=== PATIENT | male | born 1965 | race African-American/Black ===

== ENCOUNTER 2017-01-02 14:40 | Emergency (ER) | payer OTHER ==
[2017-01-02] MEDS ORDERED: MORPHINE SULFATE 4 MG/ML SYRINGE IVP STA ×2 (15:25→19:00)
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
[2017-01-02] MEDS ORDERED: KETOROLAC 30 MG/ML 1 ML VIAL IVP STA (19:00)
[2017-01-02] MEDS ORDERED: DIAZEPAM 5 MG/ML 2 ML SYRINGE IVP STA (19:00)
[2017-01-02] MEDS ORDERED: DIAZEPAM 5 MG TAB PO STA (19:18)
[2017-01-02 19:31] VITALS: BP 180/107; PULSE 85; RESP 16; TEMP 98.7
== END 2017-01-02 19:33 | disposition home or self-care (01) ==
LOC: EC 14:40
DX: T07 Unspecified multiple injuries (principal); R42 Dizziness and giddiness; M54.2 Cervicalgia; M54.5 Low back pain; M54.6 Pain in thoracic spine; M25.522 Pain in left elbow; M25.551 Pain in right hip; M25.552 Pain in left hip; M79.631 Pain in right forearm; I44.0 Atrioventricular block, first degree; I10 Essential (primary) hypertension; Z88.8 Allergy status to other drugs, medicaments and biological substances; Z79.899 Other long term (current) drug therapy; V43.62XA Car passenger injured in collision with other type car in traffic accident, initial encounter; W22.10XA Striking against or struck by unspecified automobile airbag, initial encounter; Y92.410 Unspecified street and highway as the place of occurrence of the external cause
CPT/HCPCS: 99284; 96374; 96375; 96376; 93005; 72170; 73080; 73090; 72128; 72125; 72131; 70450; J2270; J1885

== ENCOUNTER 2017-01-07 23:28 | Emergency (ER) | payer OTHER ==
[2017-01-07 23:44] VITALS: RESP 18
[2017-01-07] MEDS ORDERED: ACETAMINOPHEN TAB 500 MG TAB PO STA (23:58)
[2017-01-07] MEDS ORDERED: ONDANSETRON ODT 4 MG TAB PO STA (23:58)
[2017-01-07] MEDS ORDERED: IBUPROFEN 600 MG TAB PO STA (23:58)
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
--- NOTE | 2017-01-08 00:36 | XR ---
EXAM: XR Left Knee, 3 views XR Right Knee, 3 views CLINICAL HISTORY: Reason: Pain TECHNIQUE: Three views of the bilateral knees. COMPARISON: No relevant prior studies available. FINDINGS: Bones/joints: No acute fracture. A 1.1 cm well-corticated ossicle is seen projecting over the tibial spine of the left knee but which is likely part of the enthesopathic changes along the patellar tendon. Enthesopathic changes noted in the upper and lower poles of the patella bilaterally. No dislocation. Soft tissues: Unremarkable. IMPRESSION: No acute findings.
[2017-01-08] MEDS ORDERED: ONDANSETRON 4 MG ODT STARTER PACK 2 TAB BTL PO STA (00:43)
[2017-01-08 00:52] VITALS: BP 178/92; PULSE 67; TEMP 98.6
== END 2017-01-08 00:55 | disposition home or self-care (01) ==
LOC: EC 23:28
DX: S06.0X9A Concussion with loss of consciousness of unspecified duration, initial encounter (principal); S80.02XA Contusion of left knee, initial encounter; M25.561 Pain in right knee; M51.26 Other intervertebral disc displacement, lumbar region; I10 Essential (primary) hypertension; Z88.8 Allergy status to other drugs, medicaments and biological substances; Z79.899 Other long term (current) drug therapy; V53.5XXA Driver of pick-up truck or van injured in collision with car, pick-up truck or van in traffic accident, initial encounter; Y92.410 Unspecified street and highway as the place of occurrence of the external cause
CPT/HCPCS: 99284; 73562; S0119

== ENCOUNTER → 2017-07-18 | Outpatient (CLI) | payer BC, OTHER ==
--- NOTE | 2017-07-18 11:12 | MR ---
EXAMINATION TYPE: MR knee RT wo con DATE OF EXAM: 07/18/2017 10:24 AM COMPARISON: NONE HISTORY: Right knee pain TECHNIQUE: Multiplanar, multisequence imaging of the right knee is performed. FINDINGS: MEDIAL MENISCUS: Anterior and posterior horns are intact without tear. LATERAL MENISCUS: Anterior and posterior horns are intact without tear. CRUCIATE LIGAMENTS: The anterior and posterior cruciate ligaments are intact and unremarkable. Cystic structure is noted adjacent to the PCL measuring 2.6 x 1.2 cm. COLLATERAL LIGAMENTS: The medial collateral ligament and lateral collateral ligament complex are intact and unremarkable. EXTENSOR MECHANISM: Visualized quadriceps and patellar tendons are intact. EFFUSION: No evidence for joint effusion. POPLITEAL CYST: No popliteal/zambrano cyst. TRICOMPARTMENT SPACES: Mild narrowing medial tibiofemoral joint space and moderate to severe narrowin g patellofemoral joint space with early changes of chondral malacia patella. Associated spur formatio n noted.. CARTILAGE: The articular cartilage is maintained without abnormal signal or full-thickness defect. BONE MARROW SIGNAL: No focal abnormal marrow signal is appreciated: OTHER: No additional significant abnormality is appreciated. IMPRESSION: 1. Changes of osteoarthritis. Chondromalacia patella. 2. Cystic structure of adjacent to the PCL as noted may reflect a synovial cyst.
== END | disposition home or self-care (01) ==
LOC: RADMRIMAIN 09:48
PROVIDERS: ATTEND Orthopaedic Surgery
DX: M17.11 Unilateral primary osteoarthritis, right knee (principal); M22.41 Chondromalacia patellae, right knee

== ENCOUNTER 2018-07-05 12:23 | Emergency (ER) | payer OTHER, BC ==
[2018-07-05 12:31] VITALS: TEMP 98.1
[2018-07-05] MEDS ORDERED: HYDROmorphone 0.5 MG/0.5 ML SYRINGE IVP STA (12:43)
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
[2018-07-05 13:10] LABS: Basophils % (A) 1 %; Eosinophils # (A) 0.2 k/uL (0-0.7); Eosinophils % (A) 4 %; HCT 37.6 % (39.0-53.0); HGB 12.4 gm/dL (13.0-17.5); Lymphocytes # (A) 2.4 k/uL (1.0-4.8); Lymphocytes % (A) 40 %; MCH 29.9 pg (25.0-35.0); MCV 90.5 fL (80.0-100.0); Mean Platelet Volume 6.8; Monocytes # (A) 0.4 k/uL (0-1.0); Monocytes % (A) 6 %; Neutrophils # (A) 2.8 k/uL (1.3-7.7); Neutrophils % (A) 47 %; Platelet Count 204 k/uL (150-450); RBC 4.16 m/uL (4.30-5.90); RDW 13.5 % (11.5-15.5); WBC 6.1 k/uL (3.8-10.6)
[2018-07-05 13:21] LABS: ALT 63 U/L (21-72); AST 34 U/L (17-59); Albumin 3.9 g/dL (3.5-5.0); Alcohol <10 mg/dL; Alkaline Phosphatase 49 U/L (38-126); Anion Gap 7 mmol/L; Blood Urea Nitrogen 21 mg/dL (9-20); Calcium 8.8 mg/dL (8.4-10.2); Carbon Dioxide 26 mmol/L (22-30); Chloride 105 mmol/L (98-107); Glucose 101 mg/dL (74-99); Potassium 4.3 mmol/L (3.5-5.1); Sodium 138 mmol/L (137-145); Total Bilirubin 0.6 mg/dL (0.2-1.3)
[2018-07-05 13:30] LABS: INR 0.9 (<1.2); Partial Thromboplastin Time 24.9 sec (22.0-30.0); Prothrombin Time 9.9 sec (9.0-12.0)
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
[2018-07-05 14:50] LABS: Appearance,Urine Clear (Clear); Bilirubin,Urine Negative (Negative); Blood,Urine Negative (Negative); Color,Urine Light Yellow; Glucose,Urine (UA) Negative (Negative); Ketones,Urine Negative (Negative); Leukocyte Esterase,Urine Negative (Negative); Nitrite,Urine Negative (Negative); Protein,Urine Negative (Negative); Specific Gravity,Urine 1.023 (1.001-1.035); Urobilinogen,Urine <2.0 mg/dL (<2.0)
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
[2018-07-05 15:07] LABS: Amphetamine Screen,Urine Not Detected (NotDetected); Barbiturate Screen,Urine Not Detected (NotDetected); Benzodiazepines Screen,Urine Not Detected (NotDetected); Cocaine Screen,Urine Not Detected (NotDetected); Methadone Screen, Urine Not Detected (NotDetected); Opiate Screen,Urine Detected (NotDetected); Oxycodone Screen, Urine Not Detected (NotDetected); Phencyclidine Screen,Urine Not Detected (NotDetected); Tricyclic Antidepressant,Urine Not Detected (NotDetected); Urn Cannabinoid Scrn Detected (NotDetected)
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
[2018-07-05 15:19] VITALS: BP 157/96; PULSE 70; RESP 16
== END 2018-07-05 16:09 | disposition home or self-care (01) ==
LOC: EC 12:23
DX: S09.90XA Unspecified injury of head, initial encounter (principal); S80.02XA Contusion of left knee, initial encounter; M25.561 Pain in right knee; M54.2 Cervicalgia; M54.5 Low back pain; R79.89 Other specified abnormal findings of blood chemistry; I10 Essential (primary) hypertension; Z87.820 Personal history of traumatic brain injury; Z79.899 Other long term (current) drug therapy; Z88.8 Allergy status to other drugs, medicaments and biological substances; V89.2XXA Person injured in unspecified motor-vehicle accident, traffic, initial encounter; Y92.89 Other specified places as the place of occurrence of the external cause
CPT/HCPCS: 36415; 86900; 86901; 80053; 84484; 85025; 85610; 85730; 86850; 81003; 80306; 80320; 73562; 72170; 71045; 72125; 70450; 71260; 74177; 99285; 96374; L0120; J1170; Q9967

== ENCOUNTER 2018-07-10 11:54 | Emergency (ER) | payer OTHER, BC ==
[2018-07-10 12:21] VITALS: BP 140/89; PULSE 70; RESP 18; TEMP 98.4
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
== END 2018-07-10 14:08 | disposition home or self-care (01) ==
LOC: EC 11:54
DX: M54.9 Dorsalgia, unspecified (principal); I10 Essential (primary) hypertension; Z79.899 Other long term (current) drug therapy; Z88.8 Allergy status to other drugs, medicaments and biological substances; V89.2XXD Person injured in unspecified motor-vehicle accident, traffic, subsequent encounter
CPT/HCPCS: 99283

== ENCOUNTER → 2018-11-20 | Outpatient (CLI) | payer OTHER, BC ==
--- NOTE | 2018-11-20 16:51 | MR ---
EXAMINATION TYPE: MR knee RT wo con DATE OF EXAM: 11/20/2018 COMPARISON: Prior MRI right knee July 18, 2017. HISTORY: Right knee pain per order. Pain with locking and swelling per patient. TECHNIQUE: Multiplanar, multisequence images of the knee is performed without IV contrast. FINDINGS: MEDIAL MENISCUS: Anterior and posterior horns are intact without tear. LATERAL MENISCUS: Posterior horn is intact without tear. There is persistent curvilinear signal anter ior horn lateral meniscus extending to superior articular surface sagittal image 25. CRUCIATE LIGAMENTS: The anterior and posterior cruciate ligaments are intact and unremarkable. COLLATERAL LIGAMENTS: The medial collateral ligament and lateral collateral ligament complex are inta ct and unremarkable. EXTENSOR MECHANISM: Visualized quadriceps and patellar tendons are intact. EFFUSION: There is stable small suprapatellar joint effusion. POPLITEAL CYST: No popliteal/zambrano cyst. TRICOMPARTMENT SPACES: There is tricompartment degenerative change with spurring and narrowing. Most prominent findings or patellofemoral compartment similar to prior. CARTILAGE: There is significant chondromalacia patella with full-thickness cartilaginous loss laying along the inferior portion of the posterior patellar articulation. BONE MARROW SIGNAL: No focal abnormal marrow signal is appreciated. OTHER: No additional significant abnormality is appreciated. IMPRESSION: 1. There is full thickness tear anterior horn of lateral meniscus now identified. 2. Tricompartment degenerative changes with moderate to advanced patellofemoral joint arthropathy and significant chondromalacia patella redemonstrated.
== END | disposition home or self-care (01) ==
LOC: RADMRIMAIN 10:47
PROVIDERS: ATTEND Orthopaedic Surgery
DX: S83.281A Other tear of lateral meniscus, current injury, right knee, initial encounter (principal); M17.11 Unilateral primary osteoarthritis, right knee; M22.41 Chondromalacia patellae, right knee

== ENCOUNTER → 2019-02-21 | Outpatient (CLI) | payer OTHER ==
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
== END | disposition home or self-care (01) ==
LOC: RADUSWWP 12:14
PROVIDERS: ATTEND Family Medicine
DX: M79.662 Pain in left lower leg (principal)
CPT/HCPCS: 93970

== ENCOUNTER → 2019-12-12 | Outpatient (CLI) | payer BC, OTHER ==
--- NOTE | 2019-12-12 13:36 | CT ---
EXAMINATION TYPE: CT sinus wo con DATE OF EXAM: 12/12/2019 COMPARISON: None HISTORY: chronic pansinusitis CT DLP: 699.6 mGycm. Automated Exposure Control for Dose Reduction was Utilized. TECHNIQUE: CT scan of the sinuses is performed without contrast, axial images are obtained, coronal r eformatted images are also reviewed. FINDINGS: The paranasal sinuses including the frontal, ethmoid, sphenoid, and maxillary sinuses are remarkable for near complete opacification of left maxillary sinus, mucoperiosteal thickening present in the right maxillary sinus, inflammatory changes present in the sphenoid and ethmoid air cells. Fr ontal sinus is spared. The mastoid air cells are well aerated. Difficult to exclude underlying polyp disease, lobular appearance present in the left maxillary sinus and possibly at the level of the midd le terminated on the left. There may be some expansion of the left maxillary sinus, ostiomeatal units are obscured. The globes are intact bilaterally. IMPRESSION: Extensive sinus disease, additional findings above.
== END | disposition home or self-care (01) ==
LOC: RADCTMAIN 09:58
PROVIDERS: ATTEND Otolaryngology
DX: J32.4 Chronic pansinusitis (principal)
CPT/HCPCS: 70486

== ENCOUNTER → 2020-04-15 | Outpatient (CLI) | payer BC ==
--- NOTE | 2020-04-15 13:58 | XR ---
EXAMINATION TYPE: XR hand complete LT DATE OF EXAM: 04/15/2020 COMPARISON: None HISTORY: Pain TECHNIQUE: Three-view left hand FINDINGS: No acute fractures or dislocations are evident soft tissues are normal. Joint spaces are pr eserved. IMPRESSION: 1. Normal three-view left hand
== END | disposition home or self-care (01) ==
LOC: RADXRMAIN 13:03
PROVIDERS: ATTEND Family Medicine
DX: R52 Pain, unspecified (principal)

== ENCOUNTER → 2020-07-09 | Outpatient (CLI) | payer BC ==
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
== END ==
LOC: SLEEP 10:21
PROVIDERS: ATTEND Internal Medicine
DX: G47.33 Obstructive sleep apnea (adult) (pediatric) (principal); I10 Essential (primary) hypertension; J33.9 Nasal polyp, unspecified; M19.90 Unspecified osteoarthritis, unspecified site; E66.9 Obesity, unspecified; Z68.37 Body mass index [BMI] 37.0-37.9, adult; Z79.899 Other long term (current) drug therapy; Z79.51 Long term (current) use of inhaled steroids; Z87.828 Personal history of other (healed) physical injury and trauma; Z98.890 Other specified postprocedural states
CPT/HCPCS: 99211

== ENCOUNTER → 2023-04-14 | Day surgery (SDC) | payer BC ==
[~2023-04-14] MED LIST: HYDROmorphone 0.5 MG/0.5 ML SYRINGE IVP PRN; LACTATED RINGERS 1,000 ML IV SCH; LIDOCAINE 1% (10MG/ML) FOR IV START INTRADERMA PRN; LIDOCAINE 1% INJ 10MG/ML (20 ML MDV) ONE; PROPOFOL 10 MG/ML 20 ML VIAL IV ONE
[2023-04-14 08:46] VITALS: RESP 16; TEMP 97
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
--- NOTE | 2023-04-14 09:33 | P.OP ---
Date of Procedure: 04/14/23 Preoperative Diagnosis: Screening colonoscopy Postoperative Diagnosis: Mild diverticulosis Procedure(s) Performed: Colonoscopy Anesthesia: MAC Surgeon: Satish Salazar Pathology: none sent Condition: stable Disposition: PACU Description of Procedure: The patient's placed on the endoscopy table in the lateral position. He received IV sedation. Digital rectal exam was performed. Is revealed no abnormalities. The flexible colonoscope was then placed patient anus and passed throughout the entire colon. The ileocecal valve was visualized. The cecum, ascending and transverse colon appeared normal. Descending and sigmoid colon had minimal diverticular changes. Scope was then brought back the rectum and this appeared normal. Scope withdrawn for patient.
[2023-04-14 10:03] VITALS: BP 135/88; PULSE 71
== END | disposition home or self-care (01) ==
LOC: ORWHC2ENDO 08:05
PROVIDERS: ATTEND Surgery
DX: Z12.11 Encounter for screening for malignant neoplasm of colon (principal); K57.30 Diverticulosis of large intestine without perforation or abscess without bleeding; I10 Essential (primary) hypertension; G40.909 Epilepsy, unspecified, not intractable, without status epilepticus; M19.90 Unspecified osteoarthritis, unspecified site; Z80.1 Family history of malignant neoplasm of trachea, bronchus and lung; Z98.890 Other specified postprocedural states; Z83.3 Family history of diabetes mellitus; Z82.49 Family history of ischemic heart disease and other diseases of the circulatory system; Z82.3 Family history of stroke; Z79.899 Other long term (current) drug therapy
CPT/HCPCS: 45378; J2001; J2704

== ENCOUNTER 2023-05-08 04:58 | Inpatient (IN) | payer BC ==
[2023-05-08] MEDS ORDERED: LORazepam 2 MG/ML INJ IV STA (05:24)
[2023-05-08] MEDS ORDERED: SODIUM CHLORIDE 0.9% 1,000 ML IV STA (05:24)
[2023-05-08] MEDS ORDERED: SODIUM CHLORIDE 0.9% 500 ML 500 ML IV STA (05:24)
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
[2023-05-08 05:57] LABS: Basophils % (A) 1 %; Eosinophils # (A) 0.1 k/uL (0-0.7); Eosinophils % (A) 1 %; HCT 42.3 % (39.0-53.0); HGB 13.5 gm/dL (13.0-17.5); Lymphocytes # (A) 1.1 k/uL (1.0-4.8); Lymphocytes % (A) 19 %; MCH 30.2 pg (25.0-35.0); MCHC 31.8 g/dL (31.0-37.0); MCV 94.9 fL (80.0-100.0); Mean Platelet Volume 8.6; Monocytes # (A) 0.1 k/uL (0-1.0); Monocytes % (A) 3 %; Neutrophils # (A) 4.2 k/uL (1.3-7.7); Neutrophils % (A) 75 %; Platelet Count 241 k/uL (150-450); RBC 4.45 m/uL (4.30-5.90); RDW 12.5 % (11.5-15.5); WBC 5.6 k/uL (3.8-10.6)
[2023-05-08 06:08] LABS: ALT 32 U/L (4-49); AST 26 U/L (17-59); African American GFR (CKD) 48 (>60 ml/min/1.73 sqM); Alkaline Phosphatase 97 U/L (38-126); Anion Gap 32 mmol/L; Blood Urea Nitrogen 33 mg/dL (9-20); Calcium 10.3 mg/dL (8.4-10.2); Carbon Dioxide 11 mmol/L (22-30); Chloride 87 mmol/L (98-107); Lipase 221 U/L (23-300); Magnesium 3.2 mg/dL (1.6-2.3); Non-African American GFR(CKD) 41 (>60 ml/min/1.73 sqM); Sodium 130 mmol/L (137-145); Total Bilirubin 0.7 mg/dL (0.2-1.3); Total Protein 7.9 g/dL (6.3-8.2)
[2023-05-08 06:25] LABS: Potassium 6.2 mmol/L (3.5-5.1)
[2023-05-08 06:26] LABS: Glucose 943 mg/dL (74-99)
[2023-05-08] MEDS ORDERED: INSULIN REGULAR BOLUS (FROM DRIP BAG) IV ONE (06:43)
[2023-05-08] MEDS ORDERED: SODIUM CHLORIDE 0.9% 1,000 ML IV ONE (06:43)
[2023-05-08 06:45] LABS: INR 0.9 (<1.2); Prothrombin Time 9.8 sec (10.0-12.5)
[2023-05-08 06:52] LABS: Partial Thromboplastin Time 18.7 sec (22.0-30.0)
[2023-05-08] MEDS: INSULIN REGULAR 100 UNIT in SODIUM CHLORIDE 0.9% 100 ML IV SCH ×2 (07:30→16:57)
[2023-05-08 07:50] LABS: Glucose,Whole Blood >600 mg/dL (70-110)
[2023-05-08 08:07] LABS: VBG PH 7.28 (7.31-7.41)
[2023-05-08 08:42] LABS: African American GFR (CKD) 54 (>60 ml/min/1.73 sqM); Anion Gap 30 mmol/L; Blood Urea Nitrogen 35 mg/dL (9-20); Carbon Dioxide 12 mmol/L (22-30); Chloride 92 mmol/L (98-107); Non-African American GFR(CKD) 46 (>60 ml/min/1.73 sqM); Sodium 134 mmol/L (137-145)
[2023-05-08] MEDS ORDERED: Magnesium Replacement Protocol 1 EACH MISC MISCELLANE PRN (08:59)
[2023-05-08] MEDS ORDERED: DEXTROSE 50% SYRINGE 50 ML IVP PRN ×2 (08:59)
[2023-05-08] MEDS ORDERED: Potassium Replacement Protocol 1 EACH MISC MISCELLANE PRN (08:59)
[2023-05-08 09:00] LABS: Potassium 6.7 mmol/L (3.5-5.1)
[2023-05-08] MEDS ORDERED: SODIUM ZIRCONIUM CYCLOSILICATE 10 GM PACKET PO ONE (09:00)
[2023-05-08 09:02] LABS: Glucose 767 mg/dL (74-99)
[2023-05-08 09:13] LABS: Glucose,Whole Blood 519 mg/dL (70-110)
[2023-05-08 10:49] LABS: Glucose,Whole Blood 530 mg/dL (70-110)
[2023-05-08] MEDS: SODIUM CHLORIDE 0.9% 1,000 ML IV SCH ×5 (11:27→20:46)
[2023-05-08 11:35] LABS: T4, Free (Free Thyroxine) 1.28 ng/dL (0.78-2.19)
[2023-05-08 11:42] LABS: Glucose,Whole Blood 463 mg/dL (70-110)
[2023-05-08] MEDS ORDERED: D5-0.45% NACL WITH KCL 20MEQ/L 1,000 ML IV SCH (12:00)
[2023-05-08 12:48] LABS: African American GFR (CKD) 56 (>60 ml/min/1.73 sqM); Anion Gap 25 mmol/L; Blood Urea Nitrogen 30 mg/dL (9-20); Carbon Dioxide 13 mmol/L (22-30); Chloride 101 mmol/L (98-107); Glucose 394 mg/dL (74-99); Non-African American GFR(CKD) 48 (>60 ml/min/1.73 sqM); Potassium 5.3 mmol/L (3.5-5.1); Sodium 139 mmol/L (137-145)
[2023-05-08 12:55] LABS: Glucose,Whole Blood 372 mg/dL (70-110)
[2023-05-08 13:53] LABS: Glucose,Whole Blood 243 mg/dL (70-110)
[2023-05-08] MEDS ORDERED: HYDROcodone/APAP 7.5-325MG 1 EACH TAB PO PRN (14:13)
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
[2023-05-08] MEDS ORDERED: KCL IV SCH ×2 (14:30)
[2023-05-08] MEDS ORDERED: NACL IV SCH ×2 (14:30)
[2023-05-08] MEDS ORDERED: DEXTROSE IV SCH ×2 (14:30)
[2023-05-08 15:02] LABS: Glucose,Whole Blood 178 mg/dL (70-110)
[2023-05-08] MEDS: D5-0.45% NACL WITH KCL 20MEQ/L 1,000 ML IV SCH ×2 (15:25→20:44)
[2023-05-08 16:10] LABS: Glucose,Whole Blood 150 mg/dL (70-110)
[2023-05-08 17:11] LABS: Glucose,Whole Blood 116 mg/dL (70-110)
[2023-05-08 17:46] LABS: African American GFR (CKD) 64 (>60 ml/min/1.73 sqM); Anion Gap 14 mmol/L; Blood Urea Nitrogen 29 mg/dL (9-20); Calcium 9.8 mg/dL (8.4-10.2); Carbon Dioxide 23 mmol/L (22-30); Chloride 103 mmol/L (98-107); Glucose 114 mg/dL (74-99); Non-African American GFR(CKD) 55 (>60 ml/min/1.73 sqM); Potassium 4.2 mmol/L (3.5-5.1); Sodium 140 mmol/L (137-145)
[2023-05-08 18:14] LABS: Glucose,Whole Blood 137 mg/dL (70-110)
[2023-05-08 19:22] LABS: Glucose,Whole Blood 167 mg/dL (70-110)
[2023-05-08 20:32] LABS: Glucose,Whole Blood 187 mg/dL (70-110)
[2023-05-08 21:47] LABS: Glucose,Whole Blood 180 mg/dL (70-110)
[2023-05-08 22:43] LABS: Glucose,Whole Blood 206 mg/dL (70-110)
[2023-05-08 23:29] LABS: African American GFR (CKD) 66 (>60 ml/min/1.73 sqM); Anion Gap 15 mmol/L; Blood Urea Nitrogen 26 mg/dL (9-20); Calcium 9.4 mg/dL (8.4-10.2); Carbon Dioxide 21 mmol/L (22-30); Chloride 102 mmol/L (98-107); Glucose 190 mg/dL (74-99); Non-African American GFR(CKD) 57 (>60 ml/min/1.73 sqM); Potassium 4.1 mmol/L (3.5-5.1); Sodium 138 mmol/L (137-145)
[2023-05-09 00:36] LABS: Glucose,Whole Blood 279 mg/dL (70-110)
[2023-05-09] MEDS: INSULIN REGULAR 100 UNIT in SODIUM CHLORIDE 0.9% 100 ML IV SCH (00:39)
[2023-05-09 01:30] LABS: Glucose,Whole Blood 299 mg/dL (70-110)
[2023-05-09] MEDS: SODIUM CHLORIDE 0.9% 1,000 ML IV SCH ×3 (02:23→12:51)
[2023-05-09 02:44] LABS: Glucose,Whole Blood 289 mg/dL (70-110)
[2023-05-09 03:38] LABS: Glucose,Whole Blood 281 mg/dL (70-110)
[2023-05-09] MEDS: D5-0.45% NACL WITH KCL 20MEQ/L 1,000 ML IV SCH ×2 (03:39→11:58)
[2023-05-09 04:39] LABS: Glucose,Whole Blood 217 mg/dL (70-110)
[2023-05-09 05:46] LABS: Glucose,Whole Blood 251 mg/dL (70-110)
[2023-05-09 07:42] LABS: Glucose,Whole Blood 184 mg/dL (70-110)
[2023-05-09 08:21] LABS: Basophils % (A) 1 %; Eosinophils % (A) 1 %; HCT 35.9 % (39.0-53.0); HGB 11.7 gm/dL (13.0-17.5); Lymphocytes # (A) 2.2 k/uL (1.0-4.8); Lymphocytes % (A) 46 %; MCHC 32.7 g/dL (31.0-37.0); MCV 94.7 fL (80.0-100.0); Mean Platelet Volume 8.6; Monocytes # (A) 0.2 k/uL (0-1.0); Monocytes % (A) 3 %; Neutrophils # (A) 2.3 k/uL (1.3-7.7); Neutrophils % (A) 48 %; Platelet Count 128 k/uL (150-450); RBC 3.79 m/uL (4.30-5.90); RDW 12.4 % (11.5-15.5); WBC 4.9 k/uL (3.8-10.6)
[2023-05-09 08:24] LABS: ALT 30 U/L (4-49); AST 42 U/L (17-59); African American GFR (CKD) 87 (>60 ml/min/1.73 sqM); Albumin 3.4 g/dL (3.5-5.0); Alkaline Phosphatase 63 U/L (38-126); Anion Gap 10 mmol/L; Blood Urea Nitrogen 22 mg/dL (9-20); Calcium 8.7 mg/dL (8.4-10.2); Carbon Dioxide 22 mmol/L (22-30); Chloride 107 mmol/L (98-107); Glucose 188 mg/dL (74-99); Non-African American GFR(CKD) 75 (>60 ml/min/1.73 sqM); Potassium 4.1 mmol/L (3.5-5.1); Sodium 139 mmol/L (137-145); Total Bilirubin 0.8 mg/dL (0.2-1.3); Total Protein 6.3 g/dL (6.3-8.2)
[2023-05-09 08:36] LABS: Creatine Kinase MB 2.3 ng/mL (0.0-3.4); Troponin I 0.03 ng/mL (0.000-0.034)
--- NOTE | 2023-05-09 08:39 | P.PN ---
Subjective Progress Note Date: 05/09/23 Principal diagnosis: Dizziness and weakness This is a 57-year-old male who presented to the emergency room yesterday with complaints of weakness and dizziness. Patient reported he had been losing a lot of weight and had no appetite. Patient also reporting increased urination and increased thirst. Patient also has been having some chest discomfort for the last few weeks. Initial labs showed a glucose of 943. Patient found to be in the DKA and started on insulin drip. He has no prior history of diabetes. Past medical history of hypertension. Patient on an insulin drip since yesterday and blood sugar has stabilized. Patient was seen and evaluated laying on ER stretc her this morning. He reports he is feeling better. Still having some chest discomfort. Objective - Vital Signs Vital signs: Vital Signs Temp 98.2 F 05/08/23 05:07 Pulse 74 05/09/23 07:41 Resp 16 05/09/23 07:41 BP 168/87 05/09/23 07:41 Pulse Ox 98 05/09/23 07:41 FiO2 Intake & Output 05/08/23 05/09/23 05/09/23 18:59 06:59 18:59 Intake Total 101.000 9.627 Balance 101.000 9.627 Intake: Intake, IV Titration 101.000 9.627 Amount Insulin Regular 100 unit 101.000 9.627 In Sodium Chloride 0.9% 100 ml @ 0.1 UNITS/KG/HR 10.537 mls/hr IV .[id number] [facility] Rx#:[id number] - Constitutional General appearance: Present: cooperative, no acute distress - EENT Eyes: Present: PERRLA - Neck Neck: Present: normal ROM. Absent: lymphadenopathy, rigidity - Respiratory Respiratory: bilateral: CTA - Cardiovascular Rhythm: regular Heart sounds: normal: S1, S2 - Gastrointestinal General gastrointestinal: Absent: tenderness - Integumentary Integumentary: Present: normal, normal turgor - Psychiatric Psychiatric: Present: A&O x's 3, appropriate affect, intact judgment & insight - Labs CBC & Chem 7: 05/09/23 07:53 05/09/23 07:53 Labs: Abnormal Lab Results - Last 24 Hours (Table) 05/08/23 05/08/23 05/08/23 Range/Units 07:35 07:35 09:11 RBC (4.30-5.90) m/uL Hgb (13.0-17.5) gm/dL Hct (39.0-53.0) % Plt Count (150-450) k/uL Sodium 134 L (137-145) mmol/L Potassium 6.7 H* (3.5-5.1) mmol/L Chloride 92 L (98-107) mmol/L Carbon Dioxide 12 L (22-30) mmol/L BUN 35 H (9-20) mg/dL Creatinine 1.62 H (0.66-1.25) mg/dL Glucose 767 H* (74-99) mg/dL POC Glucose (mg/dL) 519 H (70-110) mg/dL Hemoglobin A1c (<=6.0) % Phosphorus 7.0 H (2.5-4.5) mg/dL Albumin (3.5-5.0) g/dL 05/08/23 05/08/23 05/08/23 Range/Units 09:12 10:46 11:40 RBC (4.30-5.90) m/uL Hgb (13.0-17.5) gm/dL Hct (39.0-53.0) % Plt Count (150-450) k/uL Sodium (137-145) mmol/L Potassium (3.5-5.1) mmol/L Chloride (98-107) mmol/L Carbon Dioxide (22-30) mmol/L BUN (9-20) mg/dL Creatinine (0.66-1.25) mg/dL Glucose (74-99) mg/dL POC Glucose (mg/dL) 530 H 463 H (70-110) mg/dL Hemoglobin A1c 16.3 H (<=6.0) % Phosphorus (2.5-4.5) mg/dL Albumin (3.5-5.0) g/dL 05/08/23 05/08/23 05/08/23 Range/Units 12:04 12:54 13:52 RBC (4.30-5.90) m/uL Hgb (13.0-17.5) gm/dL Hct (39.0-53.0) % Plt Count (150-450) k/uL Sodium (137-145) mmol/L Potassium 5.3 H (3.5-5.1) mmol/L Chloride (98-107) mmol/L Carbon Dioxide 13 L (22-30) mmol/L BUN 30 H (9-20) mg/dL Creatinine 1.58 H (0.66-1.25) mg/dL Glucose 394 H (74-99) mg/dL POC Glucose (mg/dL) 372 H 243 H (70-110) mg/dL Hemoglobin A1c (<=6.0) % Phosphorus (2.5-4.5) mg/dL Albumin (3.5-5.0) g/dL 05/08/23 05/08/23 05/08/23 Range/Units 15:00 16:08 17:07 RBC (4.30-5.90) m/uL Hgb (13.0-17.5) gm/dL Hct (39.0-53.0) % Plt Count (150-450) k/uL Sodium (137-145) mmol/L Potassium (3.5-5.1) mmol/L Chloride (98-107) mmol/L Carbon Dioxide (22-30) mmol/L BUN (9-20) mg/dL Creatinine (0.66-1.25) mg/dL Glucose (74-99) mg/dL POC Glucose (mg/dL) 178 H 150 H 116 H (70-110) mg/dL Hemoglobin A1c (<=6.0) % Phosphorus (2.5-4.5) mg/dL Albumin (3.5-5.0) g/dL 05/08/23 05/08/23 05/08/23 Range/Units 17:13 18:11 19:20 RBC (4.30-5.90) m/uL Hgb (13.0-17.5) gm/dL Hct (39.0-53.0) % Plt Count (150-450) k/uL Sodium (137-145) mmol/L Potassium (3.5-5.1) mmol/L Chloride (98-107) mmol/L Carbon Dioxide (22-30) mmol/L BUN 29 H (9-20) mg/dL Creatinine 1.41 H (0.66-1.25) mg/dL Glucose 114 H (74-99) mg/dL POC Glucose (mg/dL) 137 H 167 H (70-110) mg/dL Hemoglobin A1c (<=6.0) % Phosphorus (2.5-4.5) mg/dL Albumin (3.5-5.0) g/dL 05/08/23 05/08/23 05/08/23 Range/Units 20:30 21:45 22:33 RBC (4.30-5.90) m/uL Hgb (13.0-17.5) gm/dL Hct (39.0-53.0) % Plt Count (150-450) k/uL Sodium (137-145) mmol/L Potassium (3.5-5.1) mmol/L Chloride (98-107) mmol/L Carbon Dioxide 21 L (22-30) mmol/L BUN 26 H (9-20) mg/dL Creatinine 1.37 H (0.66-1.25) mg/dL Glucose 190 H (74-99) mg/dL POC Glucose (mg/dL) 187 H 180 H (70-110) mg/dL Hemoglobin A1c (<=6.0) % Phosphorus (2.5-4.5) mg/dL Albumin (3.5-5.0) g/dL 05/08/23 05/09/23 05/09/23 Range/Units 22:41 00:34 01:29 RBC (4.30-5.90) m/uL Hgb (13.0-17.5) gm/dL Hct (39.0-53.0) % Plt Count (150-450) k/uL Sodium (137-145) mmol/L Potassium (3.5-5.1) mmol/L Chloride (98-107) mmol/L Carbon Dioxide (22-30) mmol/L BUN (9-20) mg/dL Creatinine (0.66-1.25) mg/dL Glucose (74-99) mg/dL POC Glucose (mg/dL) 206 H 279 H 299 H (70-110) mg/dL Hemoglobin A1c (<=6.0) % Phosphorus (2.5-4.5) mg/dL Albumin (3.5-5.0) g/dL 05/09/23 05/09/23 05/09/23 Range/Units 02:42 03:36 04:38 RBC (4.30-5.90) m/uL Hgb (13.0-17.5) gm/dL Hct (39.0-53.0) % Plt Count (150-450) k/uL Sodium (137-145) mmol/L Potassium (3.5-5.1) mmol/L Chloride (98-107) mmol/L Carbon Dioxide (22-30) mmol/L BUN (9-20) mg/dL Creatinine (0.66-1.25) mg/dL Glucose (74-99) mg/dL POC Glucose (mg/dL) 289 H 281 H 217 H (70-110) mg/dL Hemoglobin A1c (<=6.0) % Phosphorus (2.5-4.5) mg/dL Albumin (3.5-5.0) g/dL 05/09/23 05/09/23 05/09/23 Range/Units 05:44 07:40 07:53 RBC 3.79 L (4.30-5.90) m/uL Hgb 11.7 L (13.0-17.5) gm/dL Hct 35.9 L (39.0-53.0) % Plt Count 128 L (150-450) k/uL Sodium (137-145) mmol/L Potassium (3.5-5.1) mmol/L Chloride (98-107) mmol/L Carbon Dioxide (22-30) mmol/L BUN (9-20) mg/dL Creatinine (0.66-1.25) mg/dL Glucose (74-99) mg/dL POC Glucose (mg/dL) 251 H 184 H (70-110) mg/dL Hemoglobin A1c (<=6.0) % Phosphorus (2.5-4.5) mg/dL Albumin (3.5-5.0) g/dL 05/09/23 Range/Units 07:53 RBC (4.30-5.90) m/uL Hgb (13.0-17.5) gm/dL Hct (39.0-53.0) % Plt Count (150-450) k/uL Sodium (137-145) mmol/L Potassium (3.5-5.1) mmol/L Chloride (98-107) mmol/L Carbon Dioxide (22-30) mmol/L BUN 22 H (9-20) mg/dL Creatinine (0.66-1.25) mg/dL Glucose 188 H (74-99) mg/dL POC Glucose (mg/dL) (70-110) mg/dL Hemoglobin A1c (<=6.0) % Phosphorus (2.5-4.5) mg/dL Albumin 3.4 L (3.5-5.0) g/dL Assessment and Plan (1) DKA (diabetic ketoacidosis) Current Visit: Yes Status: Acute Code(s): E11.10 - TYPE 2 DIABETES MELLITUS WITH KETOACIDOSIS WITHOUT COMA SNOMED Code(s): 895071463 (2) Diabetes mellitus, new onset Current Visit: Yes Status: Acute Code(s): E11.9 - TYPE 2 DIABETES MELLITUS WITHOUT COMPLICATIONS SNOMED Code(s): 776947519 (3) Hypertension Current Visit: Yes Status: Acute Code(s): I10 - ESSENTIAL (PRIMARY) HYPERTENSION SNOMED Code(s): 16031931 (4) Dehydration Current Visit: Yes Status: Acute Code(s): E86.0 - DEHYDRATION SNOMED Code(s): 04222978 (5) Hyperglycemia Current Visit: Yes Status: Acute Code(s): R73.9 - HYPERGLYCEMIA, UNSPECIFIED SNOMED Code(s): 17383908 Plan: Will stop insulin drip and start Levemir 31 units daily and sliding scale Order cardiac enzymes today. GI prophylaxis Protonix We'll hold off on diet until cardiac enzymes are back Check CBC and CMP in the morning Patient seen and evaluated by nurse practitioner, physician in agreement with plan
[2023-05-09] MEDS: PANTOPRAZOLE 40 MG TABLET PO SCH (08:41)
[2023-05-09] MEDS: lisinopriL 20 MG TAB PO SCH (08:41)
[2023-05-09 09:34] LABS: Glucose,Whole Blood 283 mg/dL (70-110)
[2023-05-09 11:24] LABS: Glucose,Whole Blood 273 mg/dL (70-110)
[2023-05-09] MEDS: INSULIN ASPART (NovoLOG) 100 UNIT/ML VIAL SQ SCH ×3 (12:03→21:12)
[2023-05-09 17:20] LABS: Glucose,Whole Blood 361 mg/dL (70-110)
[2023-05-09 20:50] LABS: Glucose,Whole Blood >600 mg/dL (70-110)
[2023-05-09] MEDS ORDERED: INSULIN DETEMIR (LEVEMIR) 100 UNIT/ML SYR SQ SCH (21:00)
[2023-05-09] MEDS ORDERED: INSULIN REGULAR 100 UNIT in SODIUM CHLORIDE 0.9% 100 ML IV SCH ×3 (21:15→22:39)
[2023-05-09 22:20] LABS: Glucose,Whole Blood 529 mg/dL (70-110)
[2023-05-09 23:34] LABS: Glucose,Whole Blood 518 mg/dL (70-110)
[2023-05-10 00:33] LABS: Glucose,Whole Blood 443 mg/dL (70-110)
[2023-05-10 01:29] LABS: Glucose,Whole Blood 477 mg/dL (70-110)
[2023-05-10 02:31] LABS: Glucose,Whole Blood 286 mg/dL (70-110)
[2023-05-10 03:30] LABS: Glucose,Whole Blood 165 mg/dL (70-110)
[2023-05-10 04:34] LABS: Glucose,Whole Blood 134 mg/dL (70-110)
[2023-05-10 05:36] LABS: Glucose,Whole Blood 114 mg/dL (70-110)
[2023-05-10 06:34] LABS: Glucose,Whole Blood 178 mg/dL (70-110)
[2023-05-10] MEDS: PANTOPRAZOLE 40 MG TABLET PO SCH (06:34)
[2023-05-10 08:26] LABS: Glucose,Whole Blood 263 mg/dL (70-110)
--- NOTE | 2023-05-10 08:55 | P.PN ---
Subjective Progress Note Date: 05/10/23 Principal diagnosis: Dizziness and weakness This is a 57-year-old male who presented to the emergency room yesterday with complaints of weakness and dizziness. Patient reported he had been losing a lot of weight and had no appetite. Patient also reporting increased urination and increased thirst. Patient also has been having some chest discomfort for the last few weeks. Initial labs showed a glucose of 943. Patient found to be in the DKA and started on insulin drip. He has no prior history of diabetes. Past medical history of hypertension. Patient on an insulin drip since yesterday and blood sugar has stabilized. Patient was seen and evaluated laying on ER stretc her this morning. He reports he is feeling better. Still having some chest discomfort. 05/10/2023 Patient is seen and evaluated laying in bed this morning. He was taken off the insulin drip yesterday but blood sugars did rise to above 500, and was put back on insulin drip. Sugars have now stabilized. Patient has still not eaten. Chest pain has subsided and cardiac workup was negative. Objective - Vital Signs Vital signs: Vital Signs Temp 97.7 F 05/10/23 04:39 Pulse 68 05/10/23 04:39 Resp 16 05/10/23 04:39 BP 127/67 05/10/23 04:39 Pulse Ox 98 05/10/23 04:39 FiO2 Intake & Output 05/09/23 05/10/23 05/10/23 18:59 06:59 18:59 Intake Total 51.765 Output Total 300 Balance -248.235 Weight 104.326 kg Intake: Intake, IV Titration 51.765 Amount Insulin Regular 100 unit 51.765 In Sodium Chloride 0.9% 100 ml @ 5.29 mls/hr IV . [id number] [facility] Rx#:[id number] Output: Urine 300 Other: Voiding Method Urinal # Voids 2 - Constitutional General appearance: Present: cooperative, no acute distress - EENT Eyes: Present: PERRLA - Neck Neck: Present: normal ROM. Absent: lymphadenopathy, rigidity - Respiratory Respiratory: bilateral: CTA - Cardiovascular Rhythm: regular Heart sounds: normal: S1, S2 - Gastrointestinal General gastrointestinal: Present: soft. Absent: tenderness - Integumentary Integumentary: Present: normal, normal turgor - Psychiatric Psychiatric: Present: A&O x's 3, appropriate affect, intact judgment & insight - Labs CBC & Chem 7: 05/09/23 07:53 05/09/23 07:53 Labs: Abnormal Lab Results - Last 24 Hours (Table) 05/09/23 05/09/23 05/09/23 Range/Units 09:28 11:22 17:18 POC Glucose (mg/dL) 283 H 273 H 361 H (70-110) mg/dL 05/09/23 05/09/23 05/09/23 Range/Units 20:43 22:19 23:33 POC Glucose (mg/dL) >600 H 529 H 518 H (70-110) mg/dL 05/10/23 05/10/23 05/10/23 Range/Units 00:30 01:27 02:30 POC Glucose (mg/dL) 443 H 477 H 286 H (70-110) mg/dL 05/10/23 05/10/23 05/10/23 Range/Units 03:28 04:32 05:35 POC Glucose (mg/dL) 165 H 134 H 114 H (70-110) mg/dL 05/10/23 05/10/23 Range/Units 06:33 08:25 POC Glucose (mg/dL) 178 H 263 H (70-110) mg/dL Assessment and Plan (1) DKA (diabetic ketoacidosis) Current Visit: Yes Status: Acute Code(s): E11.10 - TYPE 2 DIABETES MELLITUS WITH KETOACIDOSIS WITHOUT COMA SNOMED Code(s): 572527803 (2) Diabetes mellitus, new onset Current Visit: Yes Status: Acute Code(s): E11.9 - TYPE 2 DIABETES MELLITUS WITHOUT COMPLICATIONS SNOMED Code(s): 107545960 (3) Hypertension Current Visit: Yes Status: Acute Code(s): I10 - ESSENTIAL (PRIMARY) HYPERTENSION SNOMED Code(s): 74347066 (4) Dehydration Current Visit: Yes Status: Acute Code(s): E86.0 - DEHYDRATION SNOMED Code(s): 10878925 (5) Hyperglycemia Current Visit: Yes Status: Acute Code(s): R73.9 - HYPERGLYCEMIA, UNSPECIFIED SNOMED Code(s): 27829303 Plan: Will hold insulin drip and start Levemir 31 units daily and sliding scale Give first Levemir dose this morning. Start patient on a carb controlled diet Check CBC and CMP in the morning Patient seen and evaluated by nurse practitioner, physician in agreement with plan
[2023-05-10] MEDS: INSULIN ASPART (NovoLOG) 100 UNIT/ML VIAL SQ SCH ×4 (09:15→21:04)
[2023-05-10] MEDS: lisinopriL 20 MG TAB PO SCH (09:16)
[2023-05-10] MEDS: INSULIN DETEMIR (LEVEMIR) 100 UNIT/ML SYR SQ SCH (10:45)
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
[2023-05-10 11:17] LABS: HCT 37.3 % (39.0-53.0); HGB 11.8 gm/dL (13.0-17.5); MCH 29.7 pg (25.0-35.0); MCHC 31.8 g/dL (31.0-37.0); MCV 93.3 fL (80.0-100.0); Mean Platelet Volume 8.5; Platelet Count 155 k/uL (150-450); RBC 3.99 m/uL (4.30-5.90); RDW 12.4 % (11.5-15.5); WBC 5.4 k/uL (3.8-10.6)
[2023-05-10 11:45] LABS: ALT 41 U/L (4-49); AST 48 U/L (17-59); African American GFR (CKD) >90 (>60 ml/min/1.73 sqM); Albumin 3.7 g/dL (3.5-5.0); Alkaline Phosphatase 67 U/L (38-126); Anion Gap 17 mmol/L; Blood Urea Nitrogen 16 mg/dL (9-20); Calcium 8.8 mg/dL (8.4-10.2); Carbon Dioxide 18 mmol/L (22-30); Chloride 94 mmol/L (98-107); Glucose 462 mg/dL (74-99); Non-African American GFR(CKD) 81 (>60 ml/min/1.73 sqM); Potassium 4.7 mmol/L (3.5-5.1); Sodium 129 mmol/L (137-145); Total Bilirubin 0.8 mg/dL (0.2-1.3); Total Protein 6.6 g/dL (6.3-8.2)
[2023-05-10 12:06] LABS: Glucose,Whole Blood 460 mg/dL (70-110)
[2023-05-10 12:40] VITALS: RESP 18
[2023-05-10] MEDS: ASPIRIN 81 MG PO SCH (13:18)
[2023-05-10 14:42] VITALS: BMI 31.1
[2023-05-10 15:37] LABS: Chol/HDL Ratio 6.47 Ratio; LDL Cholesterol,Calculated 137.4 mg/dL (0.0-131.0)
--- NOTE | 2023-05-10 16:40 | CA ---
Transthoracic Echo Report Name: Anton Emerson Age: 57 Gender: M : 1965 Exam Date: 05/10/2023 11:14 Exam Location: [facility] Ht (in): 72 Wt (lb): 230 Ordering Physician: Jenny Schmidt Attending/Referring Phys: [id number], [employer] Professor Tressa Webb, TODD Procedure CPT: Indications: LV function, abnormal EKG Cardiac Hx: Technical Quality: Fair Contrast 1: Total Dose (mL): Contrast 2: Total Dose (mL): MEASUREMENTS (Male / Female) Normal Values 2D ECHO LV Diastolic Diameter PLAX 4.4 cm 4.2 - 5.9 / 3.9 - 5.3 cm LV Systolic Diameter PLAX 3.0 cm IVS Diastolic Thickness 1.1 cm 0.6 - 1.0 / 0.6 - 0.9 cm LVPW Diastolic Thickness 1.1 cm 0.6 - 1.0 / 0.6 - 0.9 cm LV Relative Wall Thickness 0.5 RV Internal Dim ED PLAX 3.3 cm LA Systolic Diameter LX 3.4 cm 3.0 - 4.0 / 2.7 - 3.8 cm LA Volume 48.6 cm??? 18 - 58 / 22 - 52 cm??? LA Volume Index 20.9 cm???/m??? 16 - 28 cm???/m??? M-MODE Aortic Root Diameter MM 3.7 cm AV Cusp Separation MM 2.4 cm DOPPLER AV Peak Velocity 149.1 cm/s AV Peak Gradient 8.9 mmHg MV Area PHT 1.9 cm??? Mitral E Point Velocity 66.0 cm/s Mitral A Point Velocity 93.9 cm/s Mitral E to A Ratio 0.7 MV Deceleration Time 391.3 ms MV E' Velocity 7.2 cm/s Mitral E to MV E' Ratio 9.2 FINDINGS Left Ventricle Left ventricular ejection fraction is estimated at 65-70 %. Left ventricular cavity size normal. Left ventricular wall thickness normal. Right Ventricle Normal right ventricular size. Unable to estimate the right ventricular systolic pressure. Right Atrium Normal right atrial size. Left Atrium Normal left atrial size. Mitral Valve Structurally normal mitral valve. No mitral stenosis, regurgitation or prolapse. Aortic Valve Trileaflet aortic valve. No aortic valve stenosis or regurgitation. Tricuspid Valve Structurally normal tricuspid valve. No tricuspid stenosis, regurgitation or prolapse. Pulmonic Valve Structurally normal pulmonic valve. No pulmonic regurgitation. Pericardium No pericardial effusion. Aorta Normal size aortic root and proximal ascending aorta. CONCLUSIONS Normal LV function Previewed by: Dr. Riley Buregr MD (Electronically Signed) Final Date: 10 May 2023 16:39
[2023-05-10 16:49] LABS: Glucose,Whole Blood 396 mg/dL (70-110)
[2023-05-10 19:41] LABS: Glucose,Whole Blood 451 mg/dL (70-110)
[2023-05-10] MEDS ORDERED: INSULIN DETEMIR (LEVEMIR) 100 UNIT/ML SYR SQ ONE (21:00)
[2023-05-10] MEDS ORDERED: ATORVASTATIN 40 MG TAB PO SCH (21:00)
[2023-05-11 06:11] LABS: Glucose,Whole Blood 207 mg/dL (70-110)
[2023-05-11] MEDS: PANTOPRAZOLE 40 MG TABLET PO SCH (06:48)
[2023-05-11] MEDS: INSULIN ASPART (NovoLOG) 100 UNIT/ML VIAL SQ SCH ×3 (06:48→16:46)
[2023-05-11] MEDS: INSULIN DETEMIR (LEVEMIR) 100 UNIT/ML SYR SQ SCH (06:48)
--- NOTE | 2023-05-11 08:34 | P.PN ---
Subjective Principal diagnosis: Admitting ketoacidosis. The patient is 57-year-old black male essentially admitted for new-onset diabetes with diabetes ketoacidosis. Sugar has not been stabilizing. However he is complaining of chest pain in the substernal area. Stress echocardiogram is pending for today. He feels much better. Objective - Vital Signs Vital signs: Vital Signs Temp 98.4 F 05/10/23 19:33 Pulse 63 05/11/23 04:15 Resp 18 05/11/23 04:15 BP 137/77 05/11/23 04:15 Pulse Ox 100 05/11/23 04:15 FiO2 Intake & Output 05/10/23 05/11/23 05/11/23 18:59 06:59 18:59 Intake Total 720 540 Output Total 675 Balance 720 -135 Weight 104.326 kg Intake: Oral 720 540 Output: Urine 675 Other: Voiding Method Urinal # Voids 3 - Constitutional General appearance: Present: average body habitus, cooperative. Absent: no acute distress - Neck Neck: Absent: lymphadenopathy - Respiratory Respiratory: bilateral: diminished - Cardiovascular Rhythm: regular Heart sounds: normal: S1, S2 Abnormal Heart Sounds: Absent: S3 Gallop - Gastrointestinal General gastrointestinal: Present: soft. Absent: tenderness - Labs CBC & Chem 7: 05/10/23 10:58 05/10/23 10:58 Labs: Abnormal Lab Results - Last 24 Hours (Table) 05/10/23 05/10/23 05/10/23 Range/Units 10:58 10:58 10:58 RBC 3.99 L (4.30-5.90) m/uL Hgb 11.8 L (13.0-17.5) gm/dL Hct 37.3 L (39.0-53.0) % Sodium 129 L (137-145) mmol/L Chloride 94 L (98-107) mmol/L Carbon Dioxide 18 L (22-30) mmol/L Glucose 462 H (74-99) mg/dL POC Glucose (mg/dL) (70-110) mg/dL Triglycerides 353.00 H (0.00-149.00) mg/dL Cholesterol 246.00 H (0.00-200.00) mg/dL LDL Cholesterol, Calc 137.4 H (0.0-131.0) mg/dL VLDL Cholesterol, Calc 70.60 H (5.00-40.00) mg/dL HDL Cholesterol 38.00 L (40.00-60.00) mg/dL 05/10/23 05/10/23 05/10/23 Range/Units 12:04 16:47 19:40 RBC (4.30-5.90) m/uL Hgb (13.0-17.5) gm/dL Hct (39.0-53.0) % Sodium (137-145) mmol/L Chloride (98-107) mmol/L Carbon Dioxide (22-30) mmol/L Glucose (74-99) mg/dL POC Glucose (mg/dL) 460 H 396 H 451 H (70-110) mg/dL Triglycerides (0.00-149.00) mg/dL Cholesterol (0.00-200.00) mg/dL LDL Cholesterol, Calc (0.0-131.0) mg/dL VLDL Cholesterol, Calc (5.00-40.00) mg/dL HDL Cholesterol (40.00-60.00) mg/dL 05/11/23 Range/Units 06:07 RBC (4.30-5.90) m/uL Hgb (13.0-17.5) gm/dL Hct (39.0-53.0) % Sodium (137-145) mmol/L Chloride (98-107) mmol/L Carbon Dioxide (22-30) mmol/L Glucose (74-99) mg/dL POC Glucose (mg/dL) 207 H (70-110) mg/dL Triglycerides (0.00-149.00) mg/dL Cholesterol (0.00-200.00) mg/dL LDL Cholesterol, Calc (0.0-131.0) mg/dL VLDL Cholesterol, Calc (5.00-40.00) mg/dL HDL Cholesterol (40.00-60.00) mg/dL Assessment and Plan (1) DKA (diabetic ketoacidosis) Current Visit: Yes Status: Acute Code(s): E11.10 - TYPE 2 DIABETES MELLITUS WITH KETOACIDOSIS WITHOUT COMA SNOMED Code(s): 601840147 (2) Dehydration Current Visit: Yes Status: Acute Code(s): E86.0 - DEHYDRATION SNOMED Code(s): 34863495 (3) Diabetes mellitus, new onset Current Visit: Yes Status: Acute Code(s): E11.9 - TYPE 2 DIABETES MELLITUS WITHOUT COMPLICATIONS SNOMED Code(s): 798447216 (4) Hypertension Current Visit: Yes Status: Acute Code(s): I10 - ESSENTIAL (PRIMARY) HYPERTENSION SNOMED Code(s): 92670482 Plan: Await stress testing today. Anticipate discharge. Approximate 40-45 units of Levemir on discharge. We'll continue to follow and start GLP-1 as an outpatient
[2023-05-11 08:55] LABS: HCT 32.8 % (39.0-53.0); HGB 11.1 gm/dL (13.0-17.5); MCH 30.6 pg (25.0-35.0); Mean Platelet Volume 7.8; Platelet Count 151 k/uL (150-450); RBC 3.65 m/uL (4.30-5.90); WBC 3.8 k/uL (3.8-10.6)
[2023-05-11 09:49] LABS: ALT 44 U/L (4-49); AST 44 U/L (17-59); African American GFR (CKD) >90 (>60 ml/min/1.73 sqM); Albumin 3.3 g/dL (3.5-5.0); Alkaline Phosphatase 65 U/L (38-126); Anion Gap 9 mmol/L; Blood Urea Nitrogen 11 mg/dL (9-20); Carbon Dioxide 28 mmol/L (22-30); Chloride 99 mmol/L (98-107); Glucose 212 mg/dL (74-99); Non-African American GFR(CKD) 81 (>60 ml/min/1.73 sqM); Potassium 3.9 mmol/L (3.5-5.1); Sodium 136 mmol/L (137-145); Total Bilirubin 0.7 mg/dL (0.2-1.3)
[2023-05-11] MEDS: lisinopriL 20 MG TAB PO SCH (10:00)
[2023-05-11] MEDS: ASPIRIN 81 MG PO SCH (10:00)
[2023-05-11 11:10] LABS: Glucose,Whole Blood 340 mg/dL (70-110)
--- NOTE | 2023-05-11 11:41 | CA ---
Stress Echo Report Anton Emerson Age: 57 Gender: M : 1965 Exam Date: 05/11/2023 09:18 Exam Location: [facility] Ht (in): 72 Wt (lb): 230 Ordering Physician: Jenny Schmidt Referring Physician: [id number] Shipping Receiving Manager: FABIO, Technologist Procedure CPT: Indication: abnormal ekg ICD-9 Codes: Rhythm: Patient History: Chest pain and abnormal EKG Cardiac Medications: Medications in past 24 hours: Contrast: Stress Results Protocol: Felix Total dose(mL): Exercise Duration (min:sec): 6:[address] Depression (mm): Angina Score: Miguel Score: METS: 7.3 Resting HR: 71 Resting BP: 133 / 69 Peak HR: 148 Peak BP: 193 / 75 Max Predicted HR: 163 91 % Max Predicted HR Target HR: 139 Double Product: 30702 Stress Summary: BP Response: Reason for Termination: MAX EXERTION/TARGET HR Cardiac Symptoms: NO SYMPTOMS ECG Analysis Resting ECG: Normal sinus rhythm normal axis normal intervals Stress ECG: Patient exercised on Felix protocol for 6 minutes achieving 85% of predicted maximal heart rate without chest pain or diagnostic ST segment depression Arrhythmia: Echo Analysis Resting Echo: Normal left ventricular size wall motion systolic function A small pericardial effusion noted Peak Echo Analysis: Normal hyperdynamic response of all segments of myocardium noted MEASUREMENTS (Male/Female) Normal Values CONCLUSIONS Average exercise tolerance Negative stress test by EKG criteria Negative stress echo Small pericardial effusion Dr. Riley Burger MD (Electronically Signed) Final Date: 11 May 2023 11:40
[2023-05-11 11:51] VITALS: BP 136/62; PULSE 74; TEMP 98.3
--- NOTE | 2023-05-11 13:01 | P.PN ---
Subjective HISTORY OF PRESENT ILLNESS: This is a 57-year-old male with a past medical history significant for hypertension, marijuana use, and newly diagnosed diabetes. 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 We have been asked to see the patient in consultation for abnormal EKG. Patient examined at the bedside. Patient is admi tted to the hospital secondary to DKA. The patient was on insulin drip yesterday. The patient denies a previous history of diabetes. Hemoglobin A1c was found to be 16.3%. An EKG was completed revealing T-wave inversions in inferior lateral leads. The patient denies having any chest pain or pressure. He denies having any shortness of breath. He reports feeling weak at home. He does report marijuana use but denies any nicotine use. He denies any previous history of coronary artery disease. 05/11/2023 Patient underwent stress echocardiogram today which was negative for ischemia. 2-D echo obtained revealing ejection fraction 65-70% with no significant valvular abnormalities noted. She without complaints of chest pain or pressure. Vital signs are stable. Blood pressure 136/62. PHYSICAL EXAM: VITAL SIGNS: Reviewed. GENERAL: Well-developed in no acute distress. HEENT: Head is normocephalic. Pupils are equal, round. Sclerae anicteric. Mucous membranes of the mouth are moist. Neck supple. No JVD or thyromegaly LUNGS: Respirations even and unlabored. Lungs essentially clear to auscultation bilaterally. HEART: Regular rate and rhythm. S1 and S2 heard. ABDOMEN: Soft. Nondistended. Nontender. EXTREMITIES: Normal range of motion. No clubbing or cyanosis. Peripheral pulses intact. No lower extremity edema NEUROLOGIC: Awake and alert. Oriented x 3. ASSESSMENT: New-onset diabetes, hemoglobin A1c 16.3% Diabetic ketoacidosis Hypertension Abnormal EKG,s/p stress echo with no evidence of ischemia Marijuana use PLAN: Patient underwent stress echocardiogram today which was negative for ischemia No further inpatient recommendations from a cardiac standpoint The patient may be discharged home today from a cardiac standpoint We will sign off. Please reconsult if needed. Nurse practitioner note has been reviewed by physician. Signing provider agrees with the documented findings, assessment, and plan of care. Objective - Vital Signs Vital signs: Vital Signs Temp 98.3 F 05/11/23 11:36 Pulse 74 05/11/23 11:36 Resp 18 05/11/23 11:36 BP 136/62 05/11/23 11:36 Pulse Ox 100 05/11/23 11:36 FiO2 Intake & Output 05/10/23 05/11/23 05/11/23 18:59 06:59 18:59 Intake Total 720 540 Output Total 675 Balance 720 -135 Weight 104.326 kg Intake: Oral 720 540 Output: Urine 675 Other: Voiding Method Urinal Urinal # Voids 3 - Labs CBC & Chem 7: 05/11/23 08:18 05/11/23 08:18 Labs: Abnormal Lab Results - Last 24 Hours (Table) 05/10/23 05/10/23 05/10/23 Range/Units 10:58 16:47 19:40 RBC (4.30-5.90) m/uL Hgb (13.0-17.5) gm/dL Hct (39.0-53.0) % Sodium (137-145) mmol/L Glucose (74-99) mg/dL POC Glucose (mg/dL) 396 H 451 H (70-110) mg/dL Total Protein (6.3-8.2) g/dL Albumin (3.5-5.0) g/dL Triglycerides 353.00 H (0.00-149.00) mg/dL Cholesterol 246.00 H (0.00-200.00) mg/dL LDL Cholesterol, Calc 137.4 H (0.0-131.0) mg/dL VLDL Cholesterol, Calc 70.60 H (5.00-40.00) mg/dL HDL Cholesterol 38.00 L (40.00-60.00) mg/dL 05/11/23 05/11/23 05/11/23 Range/Units 06:07 08:18 08:18 RBC 3.65 L (4.30-5.90) m/uL Hgb 11.1 L (13.0-17.5) gm/dL Hct 32.8 L (39.0-53.0) % Sodium 136 L (137-145) mmol/L Glucose 212 H (74-99) mg/dL POC Glucose (mg/dL) 207 H (70-110) mg/dL Total Protein 6.0 L (6.3-8.2) g/dL Albumin 3.3 L (3.5-5.0) g/dL Triglycerides (0.00-149.00) mg/dL Cholesterol (0.00-200.00) mg/dL LDL Cholesterol, Calc (0.0-131.0) mg/dL VLDL Cholesterol, Calc (5.00-40.00) mg/dL HDL Cholesterol (40.00-60.00) mg/dL 05/11/23 Range/Units 11:02 RBC (4.30-5.90) m/uL Hgb (13.0-17.5) gm/dL Hct (39.0-53.0) % Sodium (137-145) mmol/L Glucose (74-99) mg/dL POC Glucose (mg/dL) 340 H (70-110) mg/dL Total Protein (6.3-8.2) g/dL Albumin (3.5-5.0) g/dL Triglycerides (0.00-149.00) mg/dL Cholesterol (0.00-200.00) mg/dL LDL Cholesterol, Calc (0.0-131.0) mg/dL VLDL Cholesterol, Calc (5.00-40.00) mg/dL HDL Cholesterol (40.00-60.00) mg/dL
--- NOTE | 2023-05-11 14:27 | P.DS ---
Providers Date of admission: 05/08/23 06:43 Attending physician: Alvin Vasquez Primary care physician: Alvin Vasquez - Discharge Diagnosis(es) (1) DKA (diabetic ketoacidosis) Current Visit: Yes Status: Acute (2) Dehydration Current Visit: Yes Status: Acute Priority: Medium (3) Diabetes mellitus, new onset Current Visit: Yes Status: Acute (4) Hypertension Current Visit: Yes Status: Acute Hospital Course: This is discharge summary 57-year-old black male Center admitted for new onset diabetes with diabetic ketoacidosis. The patient had been complaining intermittently of chest pain for the last several weeks. We thought it was acid reflux but disc was related mainly to new onset diabetes. The patient was stabilized with insulin protocols and will be released on basal insulin. We will start GLP-1 as an outpatient and hopefully get him off his insulin with appropriate weight loss. Diabetic education was given to the patient. We will also send prescription for meter and test strips. Patient Condition at Discharge: Stable Plan - Discharge Summary Discharge Rx Participant: No New Discharge Prescriptions: New Aspirin 81 mg PO DAILY #30 tab Insulin Detemir [Levemir Flexpen] 44 units SQ DAILY #5 each Atorvastatin [Lipitor] 40 mg PO HS #30 tab Continue lisinopriL 20 mg PO DAILY Sildenafil Citrate 100 mg PO DAILY PRN PRN Reason: E.D. Montelukast [Singulair] 10 mg PO HS Ibuprofen [Motrin] 800 mg PO TID PRN PRN Reason: Pain Benzonatate 200 mg PO TID PRN PRN Reason: Cough HYDROcodone/APAP 7.5-325MG [[place] 7.5-325] 1 tab PO Q6HR PRN PRN Reason: Pain Multivitamins, Thera [Multivitamin (formulary)] 1 tab PO DAILY Livpure 1 cap PO DAILY Discharge Medication List lisinopriL 20 mg PO DAILY 07/05/18 [History] Benzonatate 200 mg PO TID PRN 04/12/23 [History] HYDROcodone/APAP 7.5-325MG [[place] 7.5-325] 1 tab PO Q6HR PRN 04/12/23 [History] Sildenafil Citrate 100 mg PO DAILY PRN 04/12/23 [History] Ibuprofen [Motrin] 800 mg PO TID PRN 05/08/23 [History] Livpure 1 cap PO DAILY 05/08/23 [History] Montelukast [Singulair] 10 mg PO HS 05/08/23 [History] Multivitamins, Thera [Multivitamin (formulary)] 1 tab PO DAILY 05/08/23 [History] Aspirin 81 mg PO DAILY #30 tab 05/11/23 [Rx] Atorvastatin [Lipitor] 40 mg PO HS #30 tab 05/11/23 [Rx] Insulin Detemir [Levemir Flexpen] 44 units SQ DAILY #5 each 05/11/23 [Rx] Follow up Appointment(s)/Referral(s): Alvin Vasquez MD [Primary Care Provider] - 1-2 days
[2023-05-11 16:39] LABS: Glucose,Whole Blood 337 mg/dL (70-110)
== END 2023-05-11 18:54 | disposition home or self-care (01) | DRG 638 ==
LOC: EC 04:58 → 3SCARD 06:43 → 5NMEDONC 05-09 18:32 → 3SCARD 05-09 20:07
PROVIDERS: ADMIT Family Medicine; ATTEND Family Medicine
DX: E11.11 Type 2 diabetes mellitus with ketoacidosis with coma (principal); E87.1 Hypo-osmolality and hyponatremia; N17.9 Acute kidney failure, unspecified; E86.0 Dehydration; I10 Essential (primary) hypertension; M19.90 Unspecified osteoarthritis, unspecified site; J30.2 Other seasonal allergic rhinitis; F12.90 Cannabis use, unspecified, uncomplicated; R94.31 Abnormal electrocardiogram [ECG] [EKG]; Z79.899 Other long term (current) drug therapy; Z88.8 Allergy status to other drugs, medicaments and biological substances
CPT/HCPCS: 36415; 80048; 80051; 80053; 80061; 82009; 82550; 82553; 82565; 82803; 82947; 83036; 83605; 83690; 83735; 84100; 84439; 84443; 84484; 84520; 85025; 85027; 85610; 85730; 93005; 93306; 93351; 96361; 96365; 96366; 96375; 99291

== ENCOUNTER → 2023-09-01 | Outpatient (CLI) | payer BC ==
--- NOTE | 2023-09-01 14:59 | US ---
EXAMINATION TYPE: US abdomen complete DATE OF EXAM: 09/01/2023 COMPARISON: NONE CLINICAL INDICATION: Male, 57 years old with history of R10.13 EPIGASTRIC PAIN; Epigastric pain, hear tburn TECHNIQUE: Multiple sonographic images of the abdomen are obtained. FINDINGS: EXAM MEASUREMENTS: Liver Length: 14.6 cm Gallbladder Wall: 0.3 cm CBD: 0.3 cm Spleen: 8.4 cm Right Kidney: 11.5 x 5.1 x 5.1 cm Left Kidney: 11.3 x 5.9 x 4.5 cm SHOE PACKER NOTES: Technical limitations due to large amount of overlying bowel gas Pancreas: Obscured by bowel gas Liver: wnl Gallbladder: no evidence of stones Evidence for sonographic Cheney's sign: no CBD: wnl Spleen: limited evaluation Right Kidney: no evidence of hydronephrosis Left Kidney: no evidence of hydronephrosis Upper IVC: wnl Abd Aorta: limited evaluation due to overlying bowel gas, visualized portions appear wnl The liver is homogenous. The intrahepatic portion of the IVC and proximal abdominal aorta are within normal limits. There is no evidence of cholelithiasis. Common bile duct is unremarkable. The visu alized portions of the pancreas are homogenous. The spleen is unremarkable. Kidneys are symmetric a nd free of hydronephrosis. No renal lesions are seen. IMPRESSION: Bowel gas obscures the pancreas. No other significant abnormality seen.
== END | disposition home or self-care (01) ==
LOC: RADUSWWP 07:59
PROVIDERS: ATTEND Family Medicine
DX: R10.13 Epigastric pain (principal)
CPT/HCPCS: 76700